=== PATIENT | female | born 1965 | race Caucasian/White ===

== ENCOUNTER 2022-08-24 15:13 | Emergency (ER) | payer BC, SELFPAY ==
[2022-08-24 17:53] LABS: #Basophils 0.1 thou/uL (0.0-0.2); #Eosinphils 0.1 thou/uL (0.0-0.7); #Lymphocytes 1.6 thou/uL (1.20-3.40); #Monocytes 1.1 thou/uL (0.11-0.59); #Neutrophils 6.9 thou/uL (1.40-6.50); %Basophils 1.4 % (0.0-1.0); %Eosinophils 1.5 % (0.0-10.0); %Lymphocytes 16.4 % (21.0-51.0); %Neutrophils 69.8 % (42.0-75.0); Hemoglobin 11.3 g/dL (12.0-16.0); Mean Corpuscular HGB CONC 32.2 g/dL (32.0-36.0); Mean Corpuscular Hemoglobin 29.7 pg (27.0-31.0); Mean Corpuscular Volume 92.2 fl (78.0-98.0); Mean Platelet Volume 9.5 fL (7.4-10.4); Platelet Count 332 10x3/uL (130-400); RBC Distribution Width 12.5 % (11.5-14.5); Red Blood Cell (RBC) Count 3.82 mill/uL (4.20-5.40); White Blood Cell (WBC) Count 9.9 10x3/uL (4.8-10.8)
[2022-08-24] MEDS ORDERED: Sodium Chloride 0.9% 1,000 ML ONE (17:54)
[2022-08-24] MEDS ORDERED: Sodium Chloride 0.9% 50 ML ONE (17:54)
[2022-08-24] MEDS ORDERED: Promethazine HCl 25 MG/ML VIAL ONE (17:55)
[2022-08-24 18:13] LABS: ALT (SGPT) 110 U/L (8-55); AST (SGOT) 67 U/L (5-34); Albumin 3.8 g/dL (3.5-5.0); Alkaline Phosphatase 76 U/L (40-110); Anion Gap 14 mmol/L (10-20); BUN (Urea Nitrogen) 6 mg/dL (9.8-20.1); Bilirubin, Total 0.3 mg/dL (0.2-1.2); Calc. Creatinine Clearance 0 mL/min (70-130); Calcium 9.3 mg/dL (7.8-10.44); Carbon Dioxide 28 mmol/L (22-29); Chloride 102 mmol/L (98-107); Estimated GFR 102; Globulin 3.2 g/dL (2.4-3.5); Glucose 96 mg/dL (70-105); Lipase 7 U/L (8-78); Sodium 140 mmol/L (136-145)
[2022-08-24 18:37] LABS: Bilirubin Negative (Negative); Blood, Urine Large (Negative); Glucose, Urine (Dipstick) Negative (Negative); Ketone, Urine 80 mg/dL (Negative); Leukocyte Trace (Negative); Nitrite Negative (Negative); Protein, Urine (Dipstick) Negative (Neg-Trace); Specific Gravity, Urine 1.015 (1.005-1.030); Urobilinogen 0.2 mg/dL (Less than 2)
[2022-08-24 18:38] LABS: Clarity Hazy (Clear)
[2022-08-24 18:53] LABS: Bacteria/HPF Rare-Few HPF (None Seen); CAUTI Indications for Culture Alt mental st,lethar; Mucous/LPF Few LPF (<2+); RBC/HPF 21-50 HPF (0-3); Squamous Epithelial 0-3 HPF (0-3); WBC/HPF 0-3 HPF (0-3)
[2022-08-24 18:54] LABS: Urine Culture Reflex No No
[2022-08-24] MEDS ORDERED: Lactated Ringer's 1,000 ML ONE ×2 (19:32→20:36)
== END 2022-08-25 05:20 | disposition short-term general hospital (02) ==
LOC: MADERS 15:13
DX: K56.699 Other intestinal obstruction unspecified as to partial versus complete obstruction (principal); Z87.891 Personal history of nicotine dependence
CPT/HCPCS: 36415; 74022; 74176; 80053; 81001; 83690; 85025; 96361; 96374; J2550; J7050; J7120